=== PATIENT | male | born 1950 | race Caucasian/White ===

== ENCOUNTER 2020-08-05 07:59 | Emergency (ER) | payer MEDICARE, BC ==
[~2020-08-05] VITALS: Ht 177.8 cm; Wt 88.6 kg
[~2020-08-05 07:59] MED LIST: NO HOME MEDS
[2020-08-05 08:07] VITALS: BP 130/80
[2020-08-05] MEDS ORDERED: ondansetron 4mg rapidly disintigrating tab PO ONE ×2 (09:55→10:10)
[2020-08-05] MEDS ORDERED: ONDA4TAB6 PO (09:56)
--- NOTE | 2020-08-05 10:05 | NUR ---
pt knocked medication on ground, called pharmacy to reorder medications. will waste previous dose.
== END 2020-08-05 10:21 | disposition home or self-care (01) ==
LOC: ER 08:00
DX: U07.1 COVID-19 (principal); K57.92 Diverticulitis of intestine, part unspecified, without perforation or abscess without bleeding; Z87.442 Personal history of urinary calculi; Z98.890 Other specified postprocedural states; Z79.899 Other long term (current) drug therapy
CPT/HCPCS: 99283